=== PATIENT | female | born 1980 | race Caucasian/White ===

== ENCOUNTER 2018-07-27 16:47 | Emergency (ER) | payer BC, OTHER ==
[2018-07-27] MEDS ORDERED: Ibuprofen TAB* 600 MG PO ONE (17:27)
[2018-07-27] MEDS ORDERED: Oxymetazoline 0.05% NASAL SPR* 15 ML BTL BOTH NARES ONE (17:32)
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
[2018-07-27 18:24] VITALS: BP 144/94
== END 2018-07-27 18:23 | disposition home or self-care (01) ==
LOC: ED 16:47
DX: S02.2XXA Fracture of nasal bones, initial encounter for closed fracture (principal); S16.1XXA Strain of muscle, fascia and tendon at neck level, initial encounter; J34.2 Deviated nasal septum; V43.52XA Car driver injured in collision with other type car in traffic accident, initial encounter; Y92.9 Unspecified place or not applicable
CPT/HCPCS: 70450; 70486; 72125; 99283; A9270-GY